=== PATIENT | female | born 2005 | race Caucasian/White ===

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

== ENCOUNTER 2025-04-08 10:00 | Outpatient (RCR) | payer BC, SELFPAY ==
--- NOTE | 2024-11-20 15:03 | HP.PTEVAL ---
Patient's Visit Information Visit Information Visit Information: MOISES WORLEY is a 19 year old F referred to Physical Therapy by Dr. Donn Conti, DO with a diagnosis of hip subluxation, spondylolisthesis. 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 hip stabs, 2. neutral spine focus core strengthenning mat to stand with pics and list. ensure has list and pics prior to departure for school. f/u at [employer] break if needed. Include psoas stretches. IE HEP : many minutes spent reviewing improtance of NS position especially in standing adn finding it often as well as avoiding ext bias activities, avoid hip popping if possible. Subjective Subjective: Dr. Conti sent in order for hip and it pops during pilates, not painful but it pops out place and pops right back in. has done that for a year after utlimatemonsbe , now becoming more frequent. Happens daily. Sometimes happens shifting weight. Doesn't keep her from doing anything. Other script from Neurologist after lifting nephew in August and he flung himself and it pulled her back forward , felt painful and out of place after that. X ray from doctor and pars defect adn spine shifted FW. Sent to spine doctor. No other treatments. Pain is worse walking and standing. Better if she keeps walking or sitting. Sleep is OK. Quit job for [employer], and goes back in 3 weeks. No sports or no clubs. Pain LBP: Pain Intensity (Out of 10): 0 Pain Intensity Range: 0 and 5 Comment: standing and walking worse sitting is better. Objective Objective: Walks into PT I without pain, transfer bed and chair I. Lumbar AROM ext painful and min limited, flexion full and painfree, SB full and painfree. Pain is central and present with PA pressure also but not in soft tissuee. Hypermobile in L hip which is where popping is with LLA demonstrateed today, hard to hold NS with this action. Tightneess present in psoas but otherwise hypermobile. 2/3 reflexes in patella dna chilles B. Sensation LE WNL to gross light touch.B. strength is 3+ hips ext adn abd, 4- hip flexion 4 in knee ext and flexion and 4+ in ankles, no myotomal problems. - SLR, - slump. - SHARONA and FADDIr, but L hip arOM er to 90 and ir to 30 vs R being IR 15 and er 70 Balance/Special Test Scores Oswestry Low Back Score: 2 Goals Goal 1:: I appropriate HEP to limit future problems with hip popping and back pain Goal Time Frame: 2-4 Weeks Goal 2:: Pain in LB 1/10 at worst and 75% better Goal Time Frame: 2-4 Weeks Goal 3:: straighten L leg elevated. without popping in hip or losing NS Goal Time Frame: 2-4 Weeks Rehabilitation Potential Physical Therapy Diagnosis: hypermobile hip and weakness core with poor pelvic posutre creating pain and dysfunction Rehabilitation Potential: Good Anticipated Interventions Patient/Client Instruction: Educate patient on: Condition and Risk Factors For the Purpose of:: To decrease pain, To improve nutrient delivery to tissue and To improve muscle performance and motor function Therapeutic Exercise to Include: Strength training, Postural training, Flexibilty training and Dynamic Lumbar Stabilization For the Purpose of:: To decrease pain, To increase ROM, To improve nutrient delivery to tissue, To improve muscle performance and motor function and To increase tolerance to activity/condition/position Text: Thank you for the opportunity to evaluate your patient. For Medicare and Medicare HMO plans, please review the plan of care and approve it. It will need to be FAXED BACK to us at [phone] for Medicare purposes. For Medicare only, by signing this I certify the plan of care. Please let me know if there are questions or concerns regarding this plan of care. Physician Signature: Date:
--- NOTE | 2025-04-08 10:19 | HP.PTDCSUM ---
Discharge Summary D/C summary: It has been my pleasure to treat MOISES WORLEY referred by Dr. Donn Conti DO, with the diagnosis of hip subluxation, spondylolisthesis for a total of 10 visit(s). Discharge Date: 04/08/25 Please see the following information for a summary of their discharge status. Subjective Subjective: Back is doing well. Did not do the exercises as often due to busy life. No back pain. Moving in was no problem nor has the travel to and from school. No pain sleeping well. No f/u with back doctor. Hip is weak, exercises feels good. Nothing else causes the hip popping adn there is no pain. Stands as long as she wants. did exercises 1-2x/week. Pain LBP: Pain Intensity (Out of 10): 1 Overall Improvement % Improvement: 100 Objective Objective/Function: Full Lumbar AROM with only slight end range extensionn disocmfort trasniently in central umbar, not limiting. hip move well and very little popping with any SLR although we did get onee pop in about 10 lifts of L hip. Walking normal, squatting normal. Goals Goal 1:: I appropriate HEP to limit future problems with hip popping and back pain Goal Progress: Goal Met Goal 2:: Pain in LB 1/10 at worst and 75% better Goal Progress: Goal Met Goal 3:: straighten L leg elevated. without popping in hip or losing NS Goal Progress: Goal Met Goal 4:: maintain improvements and continue toward 100% improvement on pain and compliance with propshylactic ex. Goal Progress: Goal Met Plan Plan: d/c to HEP, pt to contact doctor if hip starts ot hurt or back worsens which I am not expecting at this point. D/C Information d/c sentence: If there are questions or concerns regarding this patient's physical therapy, please feel free to call me at [phone]. Thank you for the referral of this patient. Sincerely, Cuauhtemoc Colby, DPT, OCS, CSCS Balance/Gait/Functional tests Balance/Special Test Scores Oswestry Low Back Score: 0 Improvement % Improvement: 100
== END 2025-04-08 19:00 | disposition home or self-care (01) ==
LOC: PT 10:00
PROVIDERS: PCP Family Medicine; Referring Provider Pediatrics; Visit Provider Pediatrics
DX: S73.005D Unspecified dislocation of left hip, subsequent encounter (principal); M43.16 Spondylolisthesis, lumbar region
CPT/HCPCS: 97110; 97161; 97164; 97530